=== PATIENT | male | born 1960 | race Caucasian/White ===

== ENCOUNTER 2018-02-28 13:45 | Emergency (ER) | payer OTHER ==
[~2018-02-28] VITALS: Ht 188 cm; Wt 127.0 kg
[~2018-02-28 13:45] MED LIST: PREDNISONE50 M1 PO; TESSALON PERLE100 M1 PO; VENTOLIN HFA18 GM INH; ZITHROMAX250 M2 PO
--- NOTE | 2018-02-28 13:53 | ED UPPER/LOWER EXTREMITY COMPL ---
History of Present Illness General Chief Complaint: Hand or Wrist Injury Stated Complaint: RT HAND CRUSHING INJURY Source: patient Exam Limitations: no limitations Vital Signs & Intake/Output Vital Signs & Intake/Output Vital Signs Date Time Temp Pulse Resp B/P B/P Pulse O2 O2 Flow FiO2 Mean Ox Delivery Rate 02/28 1347 97.1 74 20 169/83 96 Room Air Allergies Coded Allergies: Penicillins (UNKNOWN 02/28/18) Reconcile Medications Cephalexin (Keflex) 500 MG CAPSULE 1 CAP PO BID LACERATION Meloxicam (Mobic) 15 MG TABLET 1 TAB PO DAILY PRN PAIN Triage Note: PT TO ED FOR CRUSH INURY TO LEFT PINKY. PT STATES WHILE WORKING SOMETHING FELL ON HIS HAND OFF A WALL. THINKS IT WAS A CROWBAR. LAST TETANUS WITHIN 3 YEARS. LARGE LAC NOTED TO LEFT PINKY. Triage Nurses Notes Reviewed? yes Onset: Abrupt Duration: constant Timing: single episode today Severity: severe Severity Numbers: 8 HPI: Patient is a 58-year-old male who presents emergency room with concerns of of a crush injury in which he believes a crowbar fell on his left fifth digit of his hand resulting in a laceration and immediate acute onset of 7 at 10 pain. Tetanus is up-to-date. Patient is right arm dominant. ([place] Bah) Past History Travel History Traveled to [place] past 21 day No Medical History Any Pertinent Medical History? see below for history Neurological: NONE EENT: NONE Cardiovascular: NONE Respiratory: asthma Gastrointestinal: ACHELASIA Hepatic: NONE Renal: NONE Musculoskeletal: NONE Psychiatric: NONE Endocrine: PARTIAL THYROIDECTOMY Blood Disorders: NONE Cancer(s): NONE CROTCH BREAKER/Reproductive: NONE Surgical History Surgical History: non-contributory Psychosocial History What is your primary language Thai Tobacco Use: Never used ETOH Use: denies use Illicit Drug Use: denies illicit drug use Family History Hx Contributory? No ([place] aBh) Review of Systems Review of Systems Constitutional: Reports: no symptoms. EENTM: Reports: no symptoms. Respiratory: Reports: no symptoms. Cardiovascular: Reports: no symptoms. Gastrointestinal/Abdominal: Reports: no symptoms. Genitourinary: Reports: no symptoms. Musculoskeletal: Reports: see HPI. Skin: Reports: see HPI. Neurological/Psychological: Reports: no symptoms. Hematologic/Endocrine: Reports: no symptoms. Immunological: Reports: no symptoms. All Other Systems: Reviewed and Negative ([place] Bah) Physical Exam Physical Exam General Appearance: no apparent distress, alert, comfortable Head: atraumatic Eyes: Bilateral: normal appearance. Ears, Nose, Throat: hearing grossly normal Neck: normal inspection Cardiovascular/Respiratory: no respiratory distress Peripheral Pulses: 2+ radial (L) Neurologic/Tendon: normal sensation, normal motor functions, normal tendon functions, responds to pain, no evidence tendon injury, no pulse deficit Diagram Hands Front 1) 2.5 irregular deep laceration with full active range of motion of flexion and extension full resisted range of motion with flexion extension no tendon deficit ([place] Bah) Progress Differential Diagnosis: arterial insufficiency, compartment syndrome, contusion, dislocation, DVT, fracture, gout, septic arthritis, sprain, tendon injury Plan of Care: Orders Procedure Date/time Status XRY-HAND, 3 View LEFT 02/28 1354 Active On initial examination patient had full resisted range of motion with left fifth digit flexion and extension and no concerns of tendon deficit X-rays resulted no concerns of acute fracture Discussed x-rays with patient he was strongly advised to follow-up with plastic surgeon discussed patient signs of infection or a possible foreign body may be retained in which he will return to emergency room if he notes worsening symptoms. Diagnostic Imaging: Viewed by Me: Radiology Read. Radiology Impression: no acute abnormality Comments: PATIENT: CHRISTEN MTZ PRESENT AGE: 58 PATIENT ACCOUNT NO: [id number] : 60 LOCATION: [facility] ORDERING PHYSICIAN: [place] ALBA SERVICE DATE: 02/28/18 EXAM TYPE: RAD - XRY-HAND, LEFT EXAMINATION: LEFT HAND 3 VIEWS CLINICAL INFORMATION: Crush injury to the left fifth digit. Pain. COMPARISON: None. TECHNIQUE: PA, lateral, oblique views of the left hand were obtained. FINDINGS: There is soft tissue swelling to the fifth digit. There are a few flecks of ossification within the soft tissues. No acute fractures are identified. IMPRESSION: Soft tissue swelling to the fifth digit without demonstrable acute fracture. DICTATED BY: Arie Haq MD DATE/TIME DICTATED:02/28/181413 DOCTOR OF PODIATRIC MEDICINE:CAMILO DATE/TIME TRANSCRIBED:02/28/181413 ([place] Bah) Departure Departure Disposition: HOME OR SELF CARE Condition: Stable Clinical Impression Primary Impression: Laceration of left little finger Referrals: Anca Miranda (PCP/Family) Sen ALONSO,Santos Edmond Additional Instructions: As discussed begin to change the dressings once today with the extra bandages provided to YOU in the emergency room using the splint provided to the emergency room. If you note signs infection redness, pain, swelling, discharge or developing new concerning symptom return to emergency room. This week follow -up with plastic surgeon Dr. Chatterjee for further evaluation treatment. Begin the prescription meloxicam for pain and Keflex to prevent infection. Prescription is waiting at [facility]. Departure Forms: Customer Survey General Discharge Information Prescriptions: Current Visit Scripts Meloxicam (Mobic) 1 TAB PO DAILY PRN PAIN #7 TAB Cephalexin (Keflex) 1 CAP PO BID #14 CAP ([place] Bah) PA/SAW FILER Co-Sign Statement Statement: ED Attending supervision documentation- [] I saw and evaluated the patient. I have also reviewed all the pertinent lab results and diagnostic results. I agree with the findings and the plan of care as documented in the PA's/SAW FILER's documentation. [x] I have reviewed the ED Record and agree with the PA's/SAW FILER's documentation. [] Additions or exceptions (if any) to the PAs/SAW FILER's note and plan are summarized below: [] (Gus Ray DO) Procedures Laceration/Wound Repair Laceration/Wound Repair: Wound Location: upper extremity (LEFT 5TH DIGIT) Wound's Depth, Shape: irregular, DEEP Wound Length (cm): 2.5 Wound Explored: irrigated extensively Irrigated w/ Saline (ccs): 500 Betadine Prep? Yes Anesthesia: 1% lidocaine Volume Anesthetic (ccs): 10 Wound Debrided: minimal Wound Repaired With: sutures Suture Size/Type: 4:0 Number of Sutures: 8 Layer Closure? No Progress: On initial examination the margins of the laceration were dirty in which using sterile technique a Betadine and I used approximately 10 mL of 1% lidocaine for local anesthesia and digital block of the left fifth digit finger. Then using chlorhexidine I scrubbed the margins of the laceration I then placed a #8, 4-0 sutures in which margins were grossly refined Bacitracin bandage metal finger splint was applied pre-and post-neurovascular was intact ([place] Bah)
--- NOTE | 2018-02-28 14:21 | RADIOLOGY REPORT ---
EXAMINATION: LEFT HAND 3 VIEWS CLINICAL INFORMATION: Crush injury to the left fifth digit. Pain. COMPARISON: None. TECHNIQUE: PA, lateral, oblique views of the left hand were obtained. FINDINGS: There is soft tissue swelling to the fifth digit. There are a few flecks of ossification within the soft tissues. No acute fractures are identified. IMPRESSION: Soft tissue swelling to the fifth digit without demonstrable acute fracture.
[2018-02-28] MEDS ORDERED: MOBIC15 M1 PO (15:10)
[2018-02-28] MEDS ORDERED: KEFLEX500 M1 PO (15:10)
[2018-02-28 16:42] VITALS: BP 152/89
== END 2018-02-28 16:43 ==
LOC: ERH 13:45
DX: S61.217A Laceration without foreign body of left little finger without damage to nail, initial encounter (principal); W23.0XXA Caught, crushed, jammed, or pinched between moving objects, initial encounter; Y92.9 Unspecified place or not applicable; Y93.89 Activity, other specified
CPT/HCPCS: 73130-LT; J2001